=== PATIENT | female | born 1990 | race Caucasian/White ===

== ENCOUNTER 2016-09-11 11:21 | Emergency (ER) | payer BC, OTHER ==
[2016-09-11 11:29] VITALS: BP 128/84; PULSE 77; RESP 17; TEMP 98.1; O2SAT 98
--- NOTE | 2016-09-11 11:48 | UCPHY ---
H & P Patient Type: New Chief Complaint Nursing Narrative: st Time Seen by Provider: 09/11/16 11:31 HPI/ROS: Chief complaint: Sore throat HPI: 26 year female presenting with 2-3 days of worsening sore throat pain she has had pain with swallowing. She is able swallow. She is tolerating liquids. She has had some subjective fevers or chills. Does not have a history of strep throat in the past. No skin rash. No chest pain or palpitations. No cough. Does not feel her glands are particularly swollen. No neck pain. ROS: 10 point Review of Systems is negative except as noted in the HPI. Physical exam: Gen: Awake, Alert, No Distress HEENT: Nose: no rhinorrhea Eyes: PERRLA, EOMI Mouth: Moist mucosa, mild diffuse erythema. No edema. Two small points of minimal exudate. No peritonsillar swelling. Neck: Supple, no JVD Chest: nontender, lungs clear to auscultation Heart: S1, S2 normal, no murmur Abd: Soft, non-tender, no guarding Back: no CVA tenderness, no midline tenderness Ext: no edema, non-tender Skin: no rash Neuro: CN II-XII intact, Sensation grossly intact, Strength 5/5 in bilateral upper and lower extremities - Personal History LMP (Females 10-55): IUD In Place Current Tetanus/Diphtheria Vaccine: Yes - Medical/Surgical History Hx Asthma: No Hx Chronic Respiratory Disease: No Hx Diabetes: No Hx Cardiac Disease: No Hx Renal Disease: No Hx Cirrhosis: No Hx Alcoholism: No Hx HIV/AIDS: No Hx Splenectomy or Spleen Trauma: No Other PMH: r knee surgery - Family History Significant Family History: No pertinent family hx - Social History Smoking Status: Never smoked Constitutional: Initial Vital Signs Temperature (C) 36.7 C 09/11/16 11:27 Heart Rate 77 09/11/16 11:27 Respiratory Rate 17 09/11/16 11:27 Blood Pressure 128/84 H 09/11/16 11:27 O2 Sat (%) 98 09/11/16 11:27 O2 Delivery Mode Room Air Allergies/Adverse Reactions: aspirin Allergy (Verified 09/11/16 11:26) Home Medications: Medication Instructions Recorded NK [No Known Home Meds] 09/11/16 Medical Decision Making ED Course/Re-evaluation: Rapid strep is negative. Symptoms consistent with viral pharyngitis. Will discharge with supportive therapy. - Data Points Laboratory Results: 09/11/16 09/11/16 Unknown 11:35 Group A Strep Screen NEGATIVE (NEGATIVE) Group A Strep DNA Pending Departure - Departure Disposition: Home, Routine, Self-Care Clinical Impression: Pharyngitis Condition: Good Instructions: Pharyngitis (ED) Additional Instructions: He may alternate ibuprofen and acetaminophen every 3-4 hours as needed for aches and pains. Follow up with primary care doc in 3-4 days if symptoms are not improving. Referrals: [facility] [Outside] - As per Instructions - PQRS PQRS Measurement: NA
== END 2016-09-11 12:26 | disposition home or self-care (01) ==
LOC: CED 11:21
DX: J02.9 Acute pharyngitis, unspecified (principal)
CPT/HCPCS: 87880-PO; 99204-PO; G0463-PO